=== PATIENT | female | born 1940 | race Hispanic/Latino ===

== ENCOUNTER 2018-02-28 11:29 | Day surgery (SDC) | payer MEDICARE ==
[~2018-02-28 11:29] MED LIST: IOPIDINE ONE; NEOFRIN ONE
[2018-02-28] MEDS ORDERED: NEOFRIN OS ONE (11:49)
[2018-02-28] MEDS ORDERED: MYDRIACYL OS ONE (11:49)
[2018-02-28] MEDS ORDERED: IOPIDINE OS ONE ×2 (11:49→12:51)
[2018-02-28 13:39] VITALS: BP 133/54
== END 2018-02-28 12:52 | disposition home or self-care (01) ==
LOC: OR 11:29
PROVIDERS: ATTEND Specialist
DX: H26.492 Other secondary cataract, left eye (principal); I10 Essential (primary) hypertension; K21.9 Gastro-esophageal reflux disease without esophagitis; M19.90 Unspecified osteoarthritis, unspecified site